=== PATIENT | female | born 1945 | race Caucasian/White ===

== ENCOUNTER 2016-12-20 10:58 | Inpatient (IN) | payer OTHER ==
--- NOTE | ~2016-12-20 | OP ---
Record Of Operation [facility] [address] [place]. [address] NAME: JUSTIN PROCTOR : 47 STATUS : ADM IN PAT#: [id number] AGE: 71 ADM/REG DATE : 12/20/16 MR#: [id number] REPORT SERV DATE: 12/20/16 DICTATED BY: OC FOSTER JR. DATE: 12/20/16 REPORT STATUS : Draft TRANSCRIBED BY: MODL DATE: 12/20/16 DATE OF PROCEDURE: 12/20/2016 PREOPERATIVE DIAGNOSES: Pulmonary hypertension, severe tricuspid regurgitation, stage 3 chronic kidney disease, history of stroke, recurrent left pleural effusion, and atrial fibrillation. POSTOPERATIVE DIAGNOSES: Pulmonary hypertension, severe tricuspid regurgitation, stage 3 chronic kidney disease, history of stroke, recurrent left pleural effusion, and atrial fibrillation. NAME OF OPERATION: Bronchoscopy, transesophageal echocardiogram, left thoracoscopy with parietal pleural biopsy, complete decortication, talc pleurodesis 7.5 g, placement of PleurX catheter, and intercostal nerve block. SURGEON: Oc Foster M.D. RESIDENT SURGEON: Dr. Matt Mahan. WORK CHECKER: Manohar Romero. ANESTHESIA: General endotracheal. FINDINGS: On bronchoscopy, the patient was noted to have no endobronchial lesions. Mucous secretions were evacuated. There was no contraindication proceeding along with the procedure. The transesophageal echocardiogram which was noted to have better than expected right heart function, it was decreased but not severely. She did have severe tricuspid regurgitation as well as a patent foramen ovale with, at this time, [id number] shunt. This PFO had significant flow in it. Her aortic valve and mitral valves were normal with minimal mitral regurgitation. Left ventricular ejection fraction was also normal. There was no evidence of constrictive or restrictive pericarditis. The left chest had a benign pleural effusion with some mild serosanguineous component to it. There was evidence of the chest wall previous thoracentesis. The left upper lobe particularly the lingular and the basilar segments of the left lower lobe were fibrotic and severely trapped. We were able to get reasonable re-expansion but not complete re-expansion. Air leaks were created in trying to get the fibrotic lung to unfold and re-expand. I felt there was enough re-expansion that talc had a reasonable chance of working. Parietal pleural biopsy looked benign. The fluid was sent for cultures and cytology. A PleurX catheter was placed given the chance of failure. This would be a bailout option for continued home management. It was placed at this point in time given the patient's uncertainty as to the effectiveness of her talc pleurodesis and the fact that she needs to go back on anticoagulation, Coumadin would be very difficult to do as an outpatient. DETAILS OF OPERATION: After adequate general anesthesia, the patient was intubated. Bronchoscopy was performed with the above findings noted. A transesophageal echocardiogram was also performed with above findings noted. We made decision to stick to a single lumen Record Of Operation [facility] [address] [facility] [address] [place]. [address] NAME: JUSTIN PROCTOR : 47 STATUS : ADM IN [facility]#: [id number] AGE: 71 ADM/REG DATE : 12/20/16 MR#: [id number] REPORT SERV DATE: 12/20/16 DICTATED BY: OC FOSTER JR. DATE: 12/20/16 REPORT STATUS : Draft TRANSCRIBED BY: JASON DATE: 12/20/16 endotracheal tube such that we could minimize strain on the right heart. The patient was then positioned in the right lateral decubitus position. The left chest was prepped and draped in a routine sterile fashion. A small incision was made overlying the lower intercostal space. Through this single incision site, the above findings were noted. Several liters of serosanguineous fluid was evacuated from the chest cavity. It was sent for cultures and cytology. Parietal pleural biopsy was also performed. Decortication was performed which was difficult given the fibrosis of the lingular and the basilar segments. We were able to get reasonable re-expansion of the lung tissue. Talc was placed in the chest cavity. An intercostal nerve block was performed. A PleurX catheter was also placed. A 32-[place] chest tube was placed. The lung was reinflated. Single trocar site was closed with running Vicryl sutures. The skin was closed with running monofilament suture. The chest tube and PleurX catheter were secured with chest tube sutures. Sterile dressing was applied and the procedure was terminated at this point. The patient tolerated the procedure well and taken back to the recovery room in stable condition. JAVIER/JASON Oc Foster Jr., M.D. / [id number] CC: Oc Foster Jr., M.D.
--- NOTE | ~2016-12-20 | DS ---
Discharge Summary [facility] [address] [place]. [address] NAME: JUSTIN PROCTOR : 47 STATUS : DIS IN PAT#: [id number] AGE: 71 ADM/REG DATE : 12/20/16 MR#: [id number] REPORT SERV DATE: 01/01/17 DICTATED BY: OC FOSTER JR. DATE: 12/31/16 REPORT STATUS : Draft TRANSCRIBED BY: JASON DATE: 12/31/16 Data Collection from hospitalization DISCHARGE DIAGNOSES: 1. Pulmonary hypertension. 2. Severe tricuspid regurgitation. 3. Stage III chronic kidney disease. 4. History of stroke. 5. Recurrent left pleural effusion. 6. Atrial fibrillation. 7. Essential hypertension. 8. Blood clotting disorder. 9. Chronic pulmonary heart disease. 10.Chronic obstructive pulmonary disease. 11.History of stroke. 12.History of tricuspid valve disorder/nonrheumatic. CONSULTATIONS: None. PROCEDURES PERFORMED: Bronchoscopy, transesophageal echocardiogram, left thoracoscopy with parietal pleural biopsy, complete decortication talc pleurodesis 7.5 g, placement of PleurX catheter and intercostal nerve block on 12/20/2016. PATHOLOGY: Pleural fluid ThinPrep cytology, Pap stain, and cell block - negative for malignancy (largely acellular). Left parietal pleura biopsy - mesothelial hyperplasia, fibrosis, hemosiderosis, and plasma cell rich infiltrate. See description. No malignancy identified. MEDICATIONS: Lotensin 10 mg daily, vitamin B12 500 mcg sublingually daily, Flovent two puffs via inhaler every morning and two puffs via inhaler twice a day, [place] 10/325 one tablet three times a day, Synthroid 75 mcg daily, Pentasa 1000 mg twice a day, Singulair 10 mg every evening, Prilosec 20 mg daily, Ditropan 5 mg every morning, Percocet 5/325 one to two tablets every four to six hours as needed, iron 65 mg three times a day, and Coumadin 2.5 mg daily until next INR check. She was not to continue Coumadin 5 mg. CONDITION AT DISCHARGE: Stable. DISPOSITION: The patient was discharged home to be followed by home health care on a regular diet with activities as instructed. She would follow up with me on 01/24/2017 and would follow up with her primary care provider as needed. HOSPITAL COURSE: This is a 71-year-old female who presented with recurrent left pleural effusion. Her last thoracentesis was in November and over a liter of bloody fluid had been drained from her left pleural space. She had had a reduction in her shortness of breath for approximately a week, but followup chest x-ray showed reaccumulation of the left pleural effusion as well as a small right pleural effusion. Treatment options were discussed and it was elected to proceed with surgical intervention. She was admitted to the hospital for further evaluation and treatment. Discharge Summary [place] [id number] [facility] [place]. [id number] NAME: JUSTIN PROCTOR : 47 STATUS : DIS IN PAT#: [id number] AGE: 71 ADM/REG DATE : 12/20/16 MR#: [id number] REPORT SERV DATE: 01/01/17 DICTATED BY: OC FOSTER JR. DATE: 12/31/16 REPORT STATUS : Draft TRANSCRIBED BY: JASON DATE: 12/31/16 Upon admission, she was taken to the operating room where she underwent the above-mentioned procedure. She tolerated this well, and there were no complications. On postop day #1, chest x-ray showed no subcu emphysema. There was a small left apical pneumothorax. White count was 11.7. She had good pain control. On 12/22/2016, the chest tube remained in place. Her wounds were clean, dry, and intact. She remained on the epidural. On 12/23/2016, we removed the epidural catheter and tip was intact. Discharge planning was performed. She did have decreased breath sounds on the left. Discharge planning was performed. Her left pleural fluid was negative for malignancy. On 12/24/2016, she continued to do well. Discharge instructions were given. Due to her improved and stable condition, she was discharged home to be followed by home health care with the above-stated instructions. Information collected by: Rhona Norris I submit the above information as my discharge summary. HEIDI/JASON Oc Foster Jr., M.D. / [id number] CC: Oc Foster Jr., M.D. [facility]
[~2016-12-20 10:58] MED LIST: C25 PO; C5 PO; DITRO5 PO; FLOVENT DISK50 MCG INH; FLOVENT220 INH; IRON TAB PO; LOTE10 PO; NORCO1 TAB PO; PENTASA500 MG PO; PRILO PO; SINGULAIR1 PO; SYN075 PO; VITAMIN B-121000 MC1 SL
[2016-12-20 11:44] LABS: BASOPHILS 0.1 %; BASOPHILS ABSOLUTE 0.01 10/3/uL (0.0-0.16); EOSINOPHILS 2.1 %; EOSINOPHILS ABSOLUTE 0.15 10/3/uL (0.0-0.53); HEMATOCRIT 36.1 % (36.0-48.0); IMMATURE GRANULOCYTES 0.4 %; IMMATURE GRANULOCYTES ABSOLUTE 0.03 10/3/uL (0.0-0.11); LYMPHOCYTES 20.1 %; LYMPHOCYTES ABSOLUTE 1.43 10/3/uL (0.67-4.30); MEAN CORPUS HGB CONC 33.2 g/dL (32.0-36.0); MEAN CORPUSCULAR HEMOGLOB 32.1 pg (26.0-34.0); MEAN CORPUSCULAR VOLUME 96.5 fL (80-100); MEAN PLATELET VOLUME 9.6 fL (9.2-13.0); MONOCYTES 13.1 %; MONOCYTES ABSOLUTE 0.93 10/3/uL (0.21-1.20); NEUTROPHILS 64.2 %; NEUTROPHILS ABSOLUTE 4.56 10/3/uL (2.02-8.40); PLATELET COUNT 136 10/3/uL (150-400); RBC DISTRIBUTION WIDTH 14.7 % (12.0-16.0); RED CELL COUNT 3.74 10/6/uL (4.0-5.6); WHITE BLOOD CELLS 7.1 10/3/uL (4.5-10.5)
[2016-12-20 11:45] LABS: MANUAL DIFF NO %
[2016-12-20 11:51] LABS: INTERNATIONAL NORMAL RATI 1.2 UNITS (-)
[2016-12-20 12:34] LABS: ASCORBIC ACID (UR NOT ORDER) NEG (NEG); BILIRUBIN, URINE NEGATIVE (NEG); KETONE, URINE NEGATIVE (NEG); LEUKOCYTE ESTERASE(NOT OR NEG (NEG); WBC (NOT ORDERED) (RFLEX) 1 (0-5)
[2016-12-20 15:17] LABS: BASOPHILS 0.2 %; BASOPHILS ABSOLUTE 0.01 10/3/uL (0.0-0.16); EOSINOPHILS 0.8 %; EOSINOPHILS ABSOLUTE 0.05 10/3/uL (0.0-0.53); HEMATOCRIT 33.4 % (36.0-48.0); HEMOGLOBIN 11.1 g/dL (12.0-16.0); IMMATURE GRANULOCYTES 0.6 %; IMMATURE GRANULOCYTES ABSOLUTE 0.04 10/3/uL (0.0-0.11); LYMPHOCYTES 10.1 %; LYMPHOCYTES ABSOLUTE 0.65 10/3/uL (0.67-4.30); MEAN CORPUS HGB CONC 33.2 g/dL (32.0-36.0); MEAN CORPUSCULAR HEMOGLOB 31.9 pg (26.0-34.0); MEAN PLATELET VOLUME 9.7 fL (9.2-13.0); MONOCYTES 6.4 %; MONOCYTES ABSOLUTE 0.41 10/3/uL (0.21-1.20); NEUTROPHILS 81.9 %; NEUTROPHILS ABSOLUTE 5.28 10/3/uL (2.02-8.40); PLATELET COUNT 101 10/3/uL (150-400); RBC DISTRIBUTION WIDTH 14.6 % (12.0-16.0); RED CELL COUNT 3.48 10/6/uL (4.0-5.6); WHITE BLOOD CELLS 6.4 10/3/uL (4.5-10.5)
[2016-12-20 15:18] LABS: MANUAL DIFF NO %
[2016-12-20 15:31] LABS: CALCIUM, SERUM 7.8 MG/DL (8.5-10.4); CHLORIDE, SERUM 107 MMOL/L (96-112); CO2 (CARBON DIOXIDE) 29 MMOL/L (24-34); CREATININE 0.59 MG/DL (0.55-1.02); GFR AFRICAN AMERICAN 108 ML/MIN (>=60); GFR NON AFRICAN AMERICAN 93 ML/MIN (>=60); GLUCOSE, SERUM 111 MG/DL (60-99); POTASSIUM, SERUM 3.6 MMOL/L (3.5-5.3); SODIUM, SERUM 143 MMOL/L (135-148)
[2016-12-20 15:32] LABS: BUN (BLOOD UREA NITROGEN) 12 MG/DL (6-23)
[2016-12-21 07:35] LABS: BASOPHILS 0.1 %; BASOPHILS ABSOLUTE 0.01 10/3/uL (0.0-0.16); EOSINOPHILS 0 %; HEMATOCRIT 37.1 % (36.0-48.0); HEMOGLOBIN 11.7 g/dL (12.0-16.0); IMMATURE GRANULOCYTES 0.3 %; IMMATURE GRANULOCYTES ABSOLUTE 0.04 10/3/uL (0.0-0.11); LYMPHOCYTES 5.8 %; LYMPHOCYTES ABSOLUTE 0.68 10/3/uL (0.67-4.30); MEAN CORPUS HGB CONC 31.5 g/dL (32.0-36.0); MEAN CORPUSCULAR HEMOGLOB 31.3 pg (26.0-34.0); MEAN CORPUSCULAR VOLUME 99.2 fL (80-100); MEAN PLATELET VOLUME 9.9 fL (9.2-13.0); MONOCYTES 6.7 %; MONOCYTES ABSOLUTE 0.78 10/3/uL (0.21-1.20); NEUTROPHILS 87.1 %; NEUTROPHILS ABSOLUTE 10.15 10/3/uL (2.02-8.40); PLATELET COUNT 89 10/3/uL (150-400); RBC DISTRIBUTION WIDTH 14.8 % (12.0-16.0); RED CELL COUNT 3.74 10/6/uL (4.0-5.6); WHITE BLOOD CELLS 11.7 10/3/uL (4.5-10.5)
[2016-12-21 07:36] LABS: MANUAL DIFF NO %
[2016-12-21 07:54] LABS: BUN (BLOOD UREA NITROGEN) 15 MG/DL (6-23); CALCIUM, SERUM 7.7 MG/DL (8.5-10.4); CHLORIDE, SERUM 105 MMOL/L (96-112); CO2 (CARBON DIOXIDE) 22 MMOL/L (24-34); CREATININE 0.85 MG/DL (0.55-1.02); GFR AFRICAN AMERICAN 80 ML/MIN (>=60); GFR NON AFRICAN AMERICAN 69 ML/MIN (>=60); GLUCOSE, SERUM 261 MG/DL (60-99); POTASSIUM, SERUM 4.9 MMOL/L (3.5-5.3); SODIUM, SERUM 137 MMOL/L (135-148)
[2016-12-21 07:58] LABS: PLATELET ESTIMATE DEC (ADEQUATE); RBC MORPHOLOGY NORM (NORMAL)
[2016-12-24] MEDS ORDERED: PCET PO (09:02)
[2016-12-24] MEDS ORDERED: FLONASE NAS (10:49)
[2016-12-24] MEDS ORDERED: L20 PO (10:50)
== END 2016-12-24 12:03 | disposition home health service (06) | DRG 164 ==
LOC: SDC/OF 10:58 → PACU 14:52 → 5NO 16:38
PROVIDERS: Thoracic Surgery (Cardiothoracic Vascular Surgery)
PROC: 0BBP4ZX Excision of Left Pleura, Percutaneous Endoscopic Approach, Diagnostic (ICD-10-PCS; 2016-12-20)
PROC: B246ZZ4 Ultrasonography of Right and Left Heart, Transesophageal (ICD-10-PCS; 2016-12-20)
PROC: 0W9B40Z Drainage of Left Pleural Cavity with Drainage Device, Percutaneous Endoscopic Approach (ICD-10-PCS; 2016-12-20)
PROC: 3E0L3GC Introduction of Other Therapeutic Substance into Pleural Cavity, Percutaneous Approach (ICD-10-PCS; 2016-12-20)
PROC: 3E0T3CZ (ICD-10-PCS; 2016-12-20)
PROC: 0BJ08ZZ Inspection of Tracheobronchial Tree, Via Natural or Artificial Opening Endoscopic (ICD-10-PCS; principal; 2016-12-20 12:45)
PROC: 0BDP4ZZ Extraction of Left Pleura, Percutaneous Endoscopic Approach (ICD-10-PCS; 2016-12-20 12:45)
DX: J90 Pleural effusion, not elsewhere classified (principal); Q21.1 Atrial septal defect; I27.2 Other secondary pulmonary hypertension; I48.2 Chronic atrial fibrillation; I36.1 Nonrheumatic tricuspid (valve) insufficiency; N18.3 Chronic kidney disease, stage 3 (moderate); Z86.73 Personal history of transient ischemic attack (TIA), and cerebral infarction without residual deficits; Z87.891 Personal history of nicotine dependence; Z86.718 Personal history of other venous thrombosis and embolism; Z88.2 Allergy status to sulfonamides; Z91.010 Allergy to peanuts
CPT/HCPCS: 36415; 71010; 71020; 80048; 81001; 82962; 83036; 85025; 85610; 86850; 86900; 86901; 87015; 87070; 87075; 87102; 87116; 87205; 87641; 88112; 88305; 88313; 88341; 88342; 93005; 94640; A9270-GY; C1729; J0690; J2250; J2370; J2405; J2710; J2795; J3010